=== PATIENT | male | born 1940 | race Caucasian/White ===

== ENCOUNTER 2025-06-29 01:22 | Day surgery (SDC) | payer MEDICARE, OTHER, SELFPAY ==
[2025-06-24 08:21] VITALS: BMI 34.4
--- NOTE | 2025-06-24 08:33 | PC.NURSE ---
[facility] has started construction of its new state of the art ER which will open Spring 2026. With this, we anticipate parking may be a challenge for some our surgical patients and families. Parking spaces are limited but are available for all Surgical, obstetrics, and ER patients sharing this lot. If you arrive and find you are having a hard time finding a parking space, please note that we understand the challenges, please drive around the hospital and park near Hospital Entrance 1. When you enter this entrance, you can ask a volunteer to direct or take you back to the surgical waiting area to check in. We appreciate everyone?s understanding of these expected challenges while we build for your future. Report to the Outpatient Waiting Room, entrance under the green pavilion located off [address], at time ___1130am____ on date __06/29/25 . Planned Procedure Time: 1230pm .? Time changes happen often and if your time is changed the preop area will call you the afternoon before. - You and your visitor will be asked to self-screen and do not enter if you have any COVID symptoms. Please call surgeon if you need to reschedule. - A mask is optional within the hospital at this time. Am of procedure, Patient may Have Breakfast & Liquids until 10:30am, and then Nothing except sip of water if needed till post op. - No smoking, or chewing tobacco (or any form of nicotine). No chewing gum, candy or mints. Take only the following medications with a SIP of water on the morning of surgery: __AM Medications DO NOT STOP ANY OF YOUR OTHER PRESCRIPTION MEDICATIONS PRIOR TO SURGERY EXCEPT THE FOLLOWING Hold all vitamins and supplements for 3 days per anesthesiologist. Medications to discontinue per physician NONE Date to take last dose NONE Please no make-up, nail grenadian, hairspray, perfume, deodorant, or body powder the day of surgery.? No jewelry (including any body piercings) or valuables the day of surgery, leave them at home.? Please take a shower or bath the night before, or the morning of, surgery with an antibacterial soap.? Wear comfortable, loose fitting clothing.? - Jewelry must be removed prior to entering the operating room.? Rings and piercings that are not removed may be cut off. - The hospital will not accept responsibility for valuables.? - Please leave all valuables, including medications, at home the day of surgery. If you are going home after surgery, a licensed bulk tank driver must drive you home.? - NO public transportation without another adult if you receive anesthesia. - We recommend that an adult stay with you for 24 hours following discharge. - We also recommend that you do not drive, make important decision, drink alcoholic beverages, or take any drugs that were not prescribed by your health care provider for at least 24 hours after your discharge time. Follow any additional instructions given to you from your surgeon. Telephone instructions given to __Joshua Webb POA/Nephew and asked if any additional questions and then verbalized understanding. Patient advised to call surgeon office or pre surgery nurse liaison [phone] if any additional questions.
--- NOTE | ~2025-06-29 | XR_ITS ---
EXAMINATION: XR fluoroscopy no charge DATE: 06/29/2025 12:46 INDICATION: Left L4-L5 transforaminal epidural steroid injection TECHNIQUE: 36 fluoroscopic images of the lower lumbar spine were obtained during procedure performed by Dr. Rizvi. Radiologist was not present for the imaging or procedure. The amount of fluoroscopy time used during this procedure was 0.5 minutes. Total DAP was 3.9 Gycm^2. COMPARISON: None. FINDINGS: Images demonstrate the tip of the needle positioned along the inferolateral margin of one of the pedicles, reportedly left-sided. Subsequent images demonstrate injected contrast extending inferolaterally from the region of the needle tip along the course of the exiting left L4 nerve root. IMPRESSION: 1. Fluoroscopy utilized during reported left L4-L5 transforaminal epidural steroid injection. See procedure note for further detail. Reviewed, dictated and finalized at location A. IMPRESSION: 1. Fluoroscopy utilized during reported left L4-L5 transforaminal epidural ster oid injection. See procedure note for further detail.
--- NOTE | 2025-06-29 11:48 | WPDHPUPDATE1 ---
History and Physical Update Update Date/Time: 06/29/25 11:48 History and Physical has been reviewed, including an updated exam of the patient. There are NO changes in the patient's condition. Risks, benefits, and alternatives have been discussed and questions answered. Patient agrees to proceed with procedure.
--- NOTE | 2025-06-29 11:49 | W.PM.PROC2 ---
Procedure Note - Detailed Date of Procedure 06/29/25 Pre-op Diagnosis lumbar radiculopatjhy, lumbar stenosis Post-op Diagnosis Same Procedure Performed Left Lumbar Transforaminal Epidural Steroid Injection under Fluoroscopic Guidance and with Contrast Control at L4-5. Surgeon Srinivasa Rizvi MD Anesthesia Local Description of Procedure INFORMED CONSENT: Risks, benefits and alternatives to the procedure were discussed in detail with the patient who expressed explicit understanding and consent to proceed. Patient was informed verbally and in written form regarding the risks associated with the procedure including the low risk of serious infection, bleeding/bruising, allergic reaction, nerve or organ injury, paralysis, procedural site pain or discomfort, worsening pain and/or mobility, failure to treat and/or disfigurement. The patient expressed explicit understanding and consent to proceed. All materials required for the procedure were available prior to procedure start. Site and side was marked prior to procedure and confirmed in the presence of the patient. PROCEDURE IN DETAIL: The patient was brought to the procedural suite and placed in the prone position. Patient was made comfortable with use of pillows under the head/chest, hips and ankles. Skin overlying the injection site was prepared broadly with ChloraPrep applicator and draped in a sterile manner. Aseptic technique was employed throughout. The endplates of the vertebral body at the site of interest were aligned in the AP view. Ipsilateral oblique angulation was utilized to better visualize the neuroforamen of interest. Local anesthesia was established by infiltration with approximately 5 mL of 0.5% PF lidocaine via a 1-1/2 inch 27-gauge needle. A 22-gauge 5.0 inch Jim (pencil point) spinal needle was advanced until the needle approached the 6 o'clock position on the pedicle just superior to the exiting nerve root. on the left at L4-5. Lateral view was utilized to confirm appropriate position of the needle tip within the superior and posterior portion of the respective foramen. In an AP view, 1 mL of Omnipaque 300 contrast medium was injected after negative aspiration for CSF, blood or other bodily fluid, showing appropriate neurogram without evidence of intravascular or intrathecal spread of contrast. Digital subtraction imaging was used with an additional 1ml of the same contrast medium to confirm absence of intravascular contrast spread. A 1mL solution containing 10 mg of dexamethasone was injected after negative repeat aspiration. Appropriate spread of the injectate was confirmed with washout of previously injected contrast. No parasthesias were elicited. Needle was removed completely intact without difficulty. Images were saved and documented in the patient chart. Patient's skin was cleaned and sterile bandage applied. The patient tolerated the procedure well. The patient was transported to the recovery area in stable condition where they were observed for an appropriate amount of time prior to discharge, without evidence of complication. The patient was instructed to avoid excessive activity for the next 48 hours, including climbing and frequent use of stairs. Showers only for 48 hours. They were instructed not to drive or operate heavy machinery for 24 hours. They are to monitor for severe headaches, fevers, chills, night sweats, erythema/swelling at the site or any other signs of infection, bleeding/bruising, bowel or bladder changes as well as new pain, weakness or numbness in the upper or lower extremity. Should they notice these changes, they are instructed to call our office immediately or report directly to the nearest Emergency Department if no answer or if after posted office hours. COMPLICATIONS: None COMMENTS: None CONTRAST WASTED: 26 mL Omnipaque 300. STEROID WASTED: 0 mg of dexamethasone. Complications No immediate complications Condition Stable Disposition Same day [facility] Billing Surgery - Charge Forward: Surgery Billing
[2025-06-29 12:16] VITALS: BP 161/53; PULSE 66; RESP 20; TEMP 36.3; O2SAT 98
[2025-06-29 12:29] VITALS: BP 199/85; PULSE 103; RESP 22; O2SAT 96
[2025-06-29] MEDS: DEXAMETHASONE SODIUM PHOSP/PF 10 MG/ML 1 ML VIAL INFILTRATE (12:33)
[2025-06-29 12:37] VITALS: BP 176/73; PULSE 112; RESP 20; O2SAT 99
[2025-06-29 12:41] VITALS: BP 161/62; PULSE 87; RESP 16; O2SAT 98
== END 2025-06-29 13:15 | disposition home or self-care (01) ==
PROVIDERS: PCP Nurse Practitioner; Visit Provider Anesthesiology Pain Medicine
PROC: (CPT 64483; principal; 2025-06-29 12:30)
DX: M48.061 Spinal stenosis, lumbar region without neurogenic claudication (principal); F12.90 Cannabis use, unspecified, uncomplicated; Z79.891 Long term (current) use of opiate analgesic; Z98.890 Other specified postprocedural states; Z87.891 Personal history of nicotine dependence; Z80.8 Family history of malignant neoplasm of other organs or systems
CPT/HCPCS: 64483; 99199; Q9965

== ENCOUNTER 2025-08-04 00:58 | Day surgery (SDC) | payer MEDICARE, SELFPAY ==
[2025-07-30 09:24] VITALS: BMI 33.5
--- NOTE | 2025-07-30 09:30 | PC.NURSE ---
[facility] has started construction of its new state of the art ER which will open Spring 2026. With this, we anticipate parking may be a challenge for some our surgical patients and families. Parking spaces are limited but are available for all Surgical, obstetrics, and ER patients sharing this lot. If you arrive and find you are having a hard time finding a parking space, please note that we understand the challenges, please drive around the hospital and park near Hospital Entrance 1. When you enter this entrance, you can ask a volunteer to direct or take you back to the surgical waiting area to check in. We appreciate everyone?s understanding of these expected challenges while we build for your future. Report to the Outpatient Waiting Room, entrance under the green pavilion located off [address], at time __07:30am on date __08/04/25 . Planned Procedure Time: _08:30am .? Time changes happen often and if your time is changed the preop area will call you the afternoon before. - You and your visitor will be asked to self-screen and do not enter if you have any COVID symptoms. Please call surgeon if you need to reschedule. - A mask is optional within the hospital at this time. - No food or drink from midnight until time of surgery and no smoking, or chewing tobacco (or any form of nicotine). No chewing gum, candy or mints. Take only the following medications with a SIP of water on the morning of surgery: ___AM Medications DO NOT STOP ANY OF YOUR OTHER PRESCRIPTION MEDICATIONS PRIOR TO SURGERY EXCEPT THE FOLLOWING Hold all vitamins and supplements for 3 days per anesthesiologist. Medications to discontinue per physician NONE Date to take last dose NONE Please no make-up, nail spanish, hairspray, perfume, deodorant, or body powder the day of surgery.? No jewelry (including any body piercings) or valuables the day of surgery, leave them at home.? Please take a shower or bath the night before, or the morning of, surgery with an antibacterial soap.? Wear comfortable, loose fitting clothing.? Children are encouraged to wear pajamas. - Jewelry must be removed prior to entering the operating room.? Rings and piercings that are not removed may be cut off. - The hospital will not accept responsibility for valuables.? - Please leave all valuables, including medications, at home the day of surgery. If you are going home after surgery, a licensed dray driver must drive you home.? - NO public transportation without another adult if you receive anesthesia. - We recommend that an adult stay with you for 24 hours following discharge. - We also recommend that you do not drive, make important decision, drink alcoholic beverages, or take any drugs that were not prescribed by your health care provider for at least 24 hours after your discharge time.- Per Dr CHAN NO DRIVING FOR 24HRS Follow any additional instructions given to you from your surgeon. Telephone instructions given to ___Nephew/MEGAN Joshua and asked if any additional questions and then verbalized understanding. Patient advised to call surgeon office or pre surgery nurse liaison [phone] if any additional questions.
--- NOTE | ~2025-08-04 | XR_ITS ---
EXAMINATION: XR fluoroscopy no charge INDICATION: BLOCKS OF BILATERAL GENICULAR NERVES X6 . COMPARISON: None TECHNIQUE: 2 fluoroscopic images of the knees were obtained during blocks of bilateral genicular nerves. Fluoroscopy exposure time was 30 seconds. Air Kerma 30.133 mGy. DAP 3.6937 mGym2. FINDINGS/IMPRESSION: No radiologist was present or involved at the time of the procedure. Static images were submitted for interpretation. 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 Multiple images demonstrate placement of needles and injection of contrast on both sides. Fluoroscopic documentation of procedure as described of both knees. Please refer to the operative note for complete procedural details. Reviewed, dictated and finalized at location A. [facility]
--- OUTSIDE RECORDS SUMMARY | 2025-08-04 01:00 | XMS_ITS | Clinical Summary ---
Author Organization [facility] Address [address] [place] [address] Care Team Providers Care Trade Clerk Name Role Phone Elisabeth Christiansen [facility] Primary Care Provider Allergies Active Allergy Reactions Criticality Noted Date Comments Oxybutynin Dizziness,Blurred vision 07/07/2025 Medications atorvastatin (LIPITOR) 40 MG tabletIndicati ons:Hyperlipid emia Take 1 tablet (40 mg total) by mouth nightly at bedtime. 180 tablet 1 025 Active acetaminophen (TYLENOL) 500 MG tabletIndicati ons:Back Pain Take 2 tablets (1,000 mg total) by mouth 3 (three) times daily. Indications: Backache 025 Active docusate sodium (COLACE) 100 MG capsuleIndicat ions:Constipat ion Take 100 mg by mouth daily as needed. Indications: Constipation 025 Active omeprazole (PRILOSEC) 20 MG capsuleIndicat ions:Gastroeso phageal Reflux Disease TAKE 1 CAPSULE (20 MG TOTAL) BY MOUTH DAILY. INDICATIONS: GASTROESOPHAGEAL REFLUX DISEASE 90 capsule 3 025 Active donepezil (ARICEPT) 5 MG TabIndications :Vascular dementia without behavioral disturbance, psychotic disturbance, mood disturbance, or anxiety, unspecified dementia severity (CMS/HCC) TAKE 1 TABLET EVERY NIGHT AT BEDTIME 90 tablet Active tamsulosin (FLOMAX) 0.4 MG CapIndications :Benign prostatic hyperplasia with urinary frequency TAKE 2 CAPSULES EVERY DAY 180 capsule Active donepezil (ARICEPT) 5 MG TabIndications :Memory Impairment Take 1 tablet (5 mg total) by mouth nightly at bedtime. at bedtime. 90 tablet 1 025 2024 Discontinued tamsulosin (FLOMAX) 0.4 MG CapIndications :Benign prostatic hyperplasia (BPH) suspected Take 2 capsules (0.8 mg total) by mouth daily. 180 capsule 1 025 2024 Discontinued oxybutynin (DITROPAN) 5 MG tabletIndicati ons:Urinary frequency Take one at 5 pm 30 tablet 2 025 2024 Discontinued(S misha effects) Active Problems Problem Noted Date Diagnosed Date Adjustment disorder with mixed emotional feature s 06/26/2025 Depressive disorder 06/26/2025 Ex-smoker 06/26/2025 Overview (06/26/2025): Oct 23, 2023 Entered By: FRANCISCO JAVIER WOOD Comment: quit 1999, 1 ppd for 40+ yrs. Hearing loss 06/26/2025 Insomnia 06/26/2025 Lumbar spondylosis 06/26/2025 Overview (06/26/2025): Oct 24, 2023 Entered By: FRANCISCO JAVIER WOOD Comment: 07/19/23 L-spine MRI ordered by Dr. Valdez - moderate to severe spinal stenosis (L1-2, L2-3) and disc herniations (l3-4, l5-s1) February 24, 2025 Entered By: FRANCISCO JAVIER WOOD Comment: 02/18/25 L-spine MRI at [facility] - degenerative changes. L1/2 mild spinal & foreminal(F) stenosis(S) .L2/3 mod spinal & mild FS. L3/4 mild FS. L4/5 mod FS. L5/S1 severe FS. 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, initial encounter 08/14/2024 Spinal stenosis of lumbar re gion with neurogenic claudication 08/14/2024 Acute CVA (cerebrovascular accident) 03/18/2024 Stroke (cerebrum) 03/17/2024 Acute ischemic stroke 03/16/2024 Benign prostatic hyperplasia without lower urinary tract symptoms 10/11/2023 Spinal stenosis in cervical region 09/12/2012 Chronic pain of both knees 10/01/2004 Chronic back pain 10/01/1962 Overview (10/11/2023): injury in 1962 picking up a heavy object Resolved Problems Problem Noted Date Diagnosed Date Resolved Date Primary hypertension 10/25/2023 025 Rhabdomyolysis 09/26/2023 10/11/2023 Encounters Date Type Department Care Team Description 07/06/[address] [place] [address] Elisabeth Christiansen, SYNTHETIC DEPARTMENT SUPERVISOR Concerns 06/29/2025 Scan [facility] Scanned, [facility] Procedure (SCAN) 06/29/2025 Results Follow-Up [address] [place] [address] Emy Grande MA XR FOOT LT 3V 06/26/2025 4:00 PM CDT - 06/26/2025 11:59 PM CDT Hospital Encounter [facility] [address] [place] [address] [place] [address] Elisabeth Christiansen, SYNTHETIC DEPARTMENT SUPERVISOR Discharge Disposition: Home or Self Care (Routine Discharge) 06/26/2025 3:00 PM CDT Office Visit [address] [place] [address] Elisabeth Christiansen FNP Follow Up (Patient is here today for a follow up. They want to discuss medications he is taking. The flomax is not helping him at all. The melatonin is not helping either and he cannot sleep./-nkw) 06/26/2025 Travel 06/18/[address] [place] [address] Elisabeth Christiansen FNP Follow Up Call 06/04/2025 Scan [employer] SR[facility] Scanned, [facility] 05/30/2025 Travel 05/21/2025 8:00 AM CDT Home Care Visit [facility] [place] [address] [place] [address] Alise Benedict RN SN OASIS DISCHARGE/ASSESSMEN T 05/14/2025 10:00 AM CDT Home Care Visit [place] [address] [place] [address] Geovanna Hogan, PHARMACEUTICAL ASSISTANT SN HOME VISIT 05/14/2025 9:30 AM CDT Home Care Visit [place] [address] [place] [address] Nikki Lee, PT PT DISCIPLINE DISCHARGE 05/12/2025 1:30 PM CDT Home Care Visit [place] [address] [place] [address] Joyce Graff, DRESS FITTER DRESS FITTER HOME VISIT 05/12/2025 Orders Only [address] [place] [address] Elisabeth Christiansen FNP 05/12/[address] [place] [address] Elisabeth Christiansen FNP Medication 05/08/2025 11:00 AM CDT Home Care Visit [facility] Home [facility] [place] [address] Alise Benedict RN SN HOME VISIT 05/06/2025 10:30 AM CDT Home Care Visit [address] [address] Joyce Graff, DRESS FITTER DRESS FITTER HOME VISIT 05/05/2025 2:30 PM CDT Home Care Visit [facility] [address] [address] Joyce Graff, DRESS FITTER DRESS FITTER HOME VISIT from Last 3 Months Immunizations Immunization Administration Dates Next Due Fluzone High Dose (IIV, triv alent, 0.5mL) 06/19/2025,06/22/2024,06/10/2019,2017,06/14/2017,07/05/2015 Fluzone High Dose - >Age 65 (Prefilled Syringe) 10/23/2023,06/28/2023,07/25/2022 Influenza (Generic) 07/25/2022, 6,07/01/2015,2013,07/23/2007,08/01/2006,08/01/2005,1 ,06/19/2003 Influenza Adult (Generic) 06/10/2019,,06/14/2017,2014 MODERNA COVID-19 (12+) MRNA, LNP-S, PF, 100 MCG/ 0.5 ML DOSE 09/07/2021,12/15/2020,11/19/2020 PFIZER COVID-19 (12+) MRNA, LNP-S, PF, RAMONA-SUCROSE, 30 MCG/0.3 ML (COMIRNATY) 06/22/2024,10/24/2023 Pneumococcal (Generic) 01/14/2003 Pneumococcal (Prevnar 13) 06/30/2018,05/17/2016 Pneumococcal (Prevnar 20) 10/24/2023 Td, Adsorbed, Preservative F ree, Adult Use, Lf Unspecified 06/19/2003 Tdap (Generic) 10/24/2023,11/12/2015 Family History Medical History Relation Comments Cancer Mother Brain cancer Sister Relation Status Comments Daughter Father Mother Sister Social History Tobacco Use Types Packs/Day Years Used Date Smoking Tobacco: Former Cigarettes Q uit: 1989 Smokeless Tobacco: Never Tobacco Cessation:Counseling Given: No Alcohol Use Standard Drinks/Week Comments Yes 0 (1 standard drink = 0.6 oz pur e alcohol) 6 beers per week OASIS D0700: Social Isolation Answer Da te Recorded Frequency of experiencing loneliness or isolatio n Never 05/21/2025 OASIS A1250: Transportation Answer Date Recorded Lack of Transportation (Medical) No 05/21/2025 Lack of Transportation (Non-Medical) No 05/21/2025 Patient Unable or Declines to Respond No 05/21/2025 OASIS B1300: Health Literacy Answer Alexy e Recorded Frequency of needing help to read materials from doctor or pharmacy Never 05/21/2025 B1300 Health Literacy Answer Date Recor ded How often do you need to hav e someone help you when you read instructions, pamphlets, or other written material from your doctor or pharmacy? Rarely 03/06/2025 [employer] Answer Date Recorded In the past 12 months has [facility] [employer], gas, oil, or water [employer] threatened to shut off services in your home? No 03/06/2025 Humiliation, Afraid, Rape, and Kick questionnair e Answer Date Recorded Within the last year, have y ou been afraid of your partner or ex-partner? No 03/06/2025 Within the last year, have y ou been humiliated or emotionally abused in other ways by your partner or ex-partner? No Within the last year, have y ou been kicked, hit, slapped, or otherwise physically hurt by your partner or ex-partner? No 03/06/2025 Within the last year, have y ou been raped or forced to have any kind of sexual activity by your partner or ex-partner? No 03/06/2025 Social Connection and Isolation Panel Answer Date Recorded In a typical week, how many times do you talk on the phone with family, friends, or neighbors? Patient declined 03/06/2025 How often do you get togethe r with friends or relatives? Patient declined 03/06/2025 Attends [employer] Services Not on file 03/06 Do you belong to any clubs o r organizations such as anabaptist groups, unions, fraternal or athletic groups, or school groups? Yes 03/06/2025 How often do you attend meet ings of the clubs or organizations you belong to? More than 4 times per year 03/06/2025 Are you , , di vorced, , never , or living with a partner? Patient declined 03/06/2025 AUDIT-C Answer Date Recorded Q1: How often do you have a drink containing alc ohol? 2-4 times a month 03/06/2025 Q2: How many drinks containi ng alcohol do you have on a typical day when you are drinking? 1 or 2 03/06/2025 Q3: How often do you have si x or more drinks on one occasion? Never 03/06/2025 Overall Financial Resource Strain (CARDIA) Answe r Date Recorded How hard is it for you to pa y for the very basics like food, housing, medical care, and heating? Patient declined 03/06/2025 PHQ-2 Answer Date Recorded Patient Health Questionnaire-2 Score 0 02/26/2025 [facility] - Occupational Stress Questionnaire Answer Date Recorded Do you feel stress - tense, restless, nervous, or anxious, or unable to sleep at night because your mind is troubled all the time - these days? To some extent 03/06/2025 Exercise Vital Sign Answer Date Recorde d On average, how many days pe r week do you engage in moderate to strenuous exercise (like a brisk walk)? Patient declined On average, how many minutes do you engage in exercise at this level? Patient declined 03/06/2025 Hunger Vital Sign Answer Date Recorded Within the past 12 months, y ou worried that your food would run out before you got the money to buy more. Patient declined Within the past 12 months, t he food you bought just didn't last and you didn't have money to get more. Patient declined 03/2025 PRAPARE - Transportation Answer Date Re corded In the past 12 months, has l ack of transportation kept you from medical appointments or from getting medications? No 03/2025 In the past 12 months, has l ack of transportation kept you from meetings, work, or from getting things needed for daily living? No 03/06/2025 Housing Stability Vital Sign Answer Alexy e Recorded In the last 12 months, was t here a time when you were not able to pay the mortgage or rent on time? No 09/26/2023 In the last 12 months, how many places have you lived? 1 09/26/2023 In the last 12 months, was t here a time when you did not have a steady place to sleep or slept in a mcc (including now)? No 09/26/2023 Housing Stability Vital Sign Answer Alexy e Recorded In the last 12 months, was t here a time when you were not able to pay the mortgage or rent on time? Patient declined 03/06/20 25 Number of Times Moved in the Last Year Not on fi le 03/06/2025 At any time in the past 12 m [facility], were you homeless or living in a mcc (including now)? No 03/06/2025 Sex and Gender Information Value Date Recorded Sex Assigned at Male 10/14/2024 1:22 PM SNOWBLOWER MECHANIC Legal Sex Male 11:34 PM CDT Gender Identity Male 02/26/2025 8:55 AM CDT Sexual Orientation Not on file Last Filed Vital Signs Vital Sign Reading Time Taken Comments Blood Pressure 132/60 06/26/2025 3:02 PM CDT Pulse 86 06/26/2025 3:02 PM CDT Temperature 36.8 C (98.3 F) 06/26/2025 3:02 PM CDT Respiratory Rate 16 06/26/2025 3:02 PM CDT Oxygen Saturation 98% 06/26/2025 3:02 PM CDT Inhaled Oxygen Concentration - - Weight 101.6 kg (224 lb) 06/26/2025 3:02 PM CDT Height 172.7 cm (5' 8) 06/26/2025 3:02 PM CDT Body Mass Index 34.06 06/26/2025 3:02 PM CDT Plan of Treatment Upcoming Encounters Date Type Department Care Team (Late st Contact Info) Description 09/18/2025 3:00 PM SNOWBLOWER MECHANIC Office Visit [address] [place] [address] Elisabeth Christiansen, [facility] [address] [facility] [place], [place] [id number] Health Maintenance Due Date Last Done Comments Zoster Vaccines (1 of 2) 1988 RSV Immunization or 60+ Years (1 - 1-dose 75+ series) 2013 COVID-19 Vaccine ( - season) 2025 06/22/2024, 10/24/2023, 09/07/2021, Additional history exists Annual Medicare Wellness Visit 02/25/2026 Postponed from 2003 (Patient Refused) DTaP, Tdap and Td Vaccines (3 - Td or Tdap) 10/24/2033 10/24/2023, 11/12/2015, 06/19/2003 Pneumococcal Vaccine: 50+ Years Completed 10/24/2023, 06/30/2018, 05/17/2016 PHQ-2 (Physician [place]) Completed 02/26/2025 Influenza Adult Completed 06/19/2025, 06/02, 10/23/2023, Additional history exists Hepatitis A Vaccines Aged Out No long er eligible based on patient's age to complete this topic Meningococcal B Vaccine Aged Out No l onger eligible based on patient's age to complete this topic Meningococcal Vaccine Aged Out No jaelyn jg eligible based on patient's age to complete this topic RSV Immunizations Under 20 Months Aged Out No longer eligible based on patient's age to complete this topic Medical Devices Implanted Type Area Graphic Editor Device Identifier Shelf Expiration Date Model / Serial / Lot Iol [employer]ec[employer] Simplicity Dcb00 - [id number] Implanted:Qty: 1 on 01/30/2024 by Rebeca Startton MD at [facility] [employer] 05/12/2026 DCB00 / / [id number] Procedures Procedure Name Priority Date/Time Associated Diagnosis Comments PROCEDURE GENERIC (SCAN ORDER) 06/29/2025 PROCEDURE GENERIC (SCAN ORDER) 06/29/2025 XR FOOT LT 3V Routine 06/26/2025 4:29 PM CDT Injury of left foot, initial encounter from Last 3 Months Results * PROCEDURE GENERIC (SCAN ORDER) (06/29/2025) 06/29/2025 [facility] Scanned SCANNING Final Resu lt * PROCEDURE GENERIC (SCAN ORDER) (06/29/2025) 06/29/2025 [facility] Scanned SCANNING Final Resu lt * XR FOOT LT 3V (06/26/2025 4:29 PM CDT) Anatomical Region Laterality Modality Foot Computed Tomogra phy 06/29/2025 7:09 AM CDT Impressions 06/29/2025 7:09 AM CDT IMPRESSION: No acute findings Ordered By: ELISABETH CHRISTIANSEN Interpreted By: Elier Matos MD, 06/29/2025 7:09 AM Narrative 06/29/2025 7:09 AM CDT [address] [place] [address] 3 VIEWS OF THE LEFT FOOT CLINICAL HISTORY: Pain COMPARISON: February 11, 2020 3 views of the left foot demonstrate the bony elements to be intact. There is no evidence of fracture or dislocation. The surrounding soft tissues appear normal. Degenerative changes are again noted throughout the foot but seen predominantly within the first metatarsal phalangeal joint. These are slightly increased from previous Procedure Note Elier Matos MD - 06/29/[address] [place] [address] 3 VIEWS OF THE LEFT FOOT CLINICAL HISTORY: Pain COMPARISON: February 11, 2020 3 views of the left foot demonstrate the bony elements to be intact.There is no evidence of fracture or dislocation. The surrounding softtissues appear normal. Degenerative changes are again noted throughout thefoot but seen predominantly within the first metatarsal phalangeal joint.These are slightly increased from previous IMPRESSION: No acute findings Ordered By: ELISABETH CHRISTIANSEN Interpreted By: Elier Matos MD, 06/29/2025 7:09 AM Elisabeth Christiansen SYNTHETIC DEPARTMENT SUPERVISOR GENERAL IMAGING Final Result from Last 3 Months Insurance [employer] [facility] Advance Directives Documents on File Type Date Recorded Patient Certified Ophthalmic Assistant Expl anation DNR (Do Not Resuscitate) Documentation 03/31/2024 2:35 PM DNR (Do Not Resuscitate) Documentation 04/02/2025 10:14 AM Power of Manager Strategic Partnerships 04/16/2025 4:20 PM prope rty Advance Directives and Living Will 03/11/2025 7:52 AM Healthcare POA & LIVING WILL * Full Code (Latest Code Status on File) Date Activated Date Inactivated Comments 04/27/2025 3:13 PM * Full Code Date Activated Date Inactivated Comments 03/26/2025 12:46 PM 04/18/2025 9:10 PM * POLST Date Activated Date Inactivated Comments 03/11/2025 12:40 AM 03/19/2025 12:23 PM Question Answer Comments Cardiopulmonary Resuscitatio n (CPR) If patient has no pulse and is not breathing: DO NOT Attempt Resuscitation CPR Code Limitations: No Chest Compression No Defibrillation/CardioversionN o Internal/External PacemakerNo Mechanical Ventilation with IntubationNo Drug Protocol After Arrest OccursNo Bag/Mask Medical Interventions when N OT in Cardiopulmonary Arrest (If patient is found with a pulse and/or is breathing): Selective Treatment - Do NOT Intubate Selective Treatment Options: OxygenSucti onCPAP/BIPAPIV FluidsIV Medications Artificially administered nutrition - Offer food by mouth, if feasible and desired: Trial - Defined Trial Period NO SURGICALLY PLACED TUBES Documentation of discussion: Patient * DNR Date Activated Date Inactivated Comments 03/07/2025 4:13 PM 03/11/2025 12:40 AM * DNR Date Activated Date Inactivated Comments 03/06/2025 11:55 AM 03/07/2025 4:12 PM Healthcare Agents on File Name Relationship Healthcare Agent Yuania p Communication Joshua (POA-H/F) [facility] Care Agent Care Teams Trade Clerk Relationship Specialty Start Date End Date Elisabeth Christiansen FNP [facility] [address] PCP - General Nurse Practitioner Family 10/19/23
--- OUTSIDE RECORDS SUMMARY | 2025-08-04 01:00 | XMS_ITS | Encounter Summary ---
Author Organization [facility] Address [address] [place] [address] Care Team Providers Care Adhesive Bonding Machine Operator Name Role Phone Erich Valdez MD Primary Care Provider Elisabeth Christiansen Primary Care Provider Lisa Hernández RN Unavailable [phone] Encounter Details Date Type Department Care Team (Late st Contact Info) Description 05/20/[address] [facility] [address] [place], [place] [id number] , Generic Conversion, Social History Tobacco Use Types Packs/Day Years Used Date Smoking Tobacco: Never Assessed Sex and Gender Information Value Date Recorded Sex Assigned at Male 10/14/2024 1:22 PM STAY CUTTER Legal Sex Male 11:34 PM CDT Gender Identity Male 02/26/2025 8:55 AM CDT Sexual Orientation Not on file documented as of this encounter Plan of Treatment Upcoming Encounters Date Type Department Care Team (Late st Contact Info) Description 09/18/2025 3:00 PM STAY CUTTER Office Visit [address] [place] [address] Elisabeth Christiansen FNP [address] [place] [address] documented as of this encounter Visit Diagnoses Not on filedocumented in this encounter Additional Health Concerns Infection Onset Date Last Indicated Resolved Time Respiratory Rule Out 03/06/2025 03/06/2025 025 9:43 AM CDT COVID-19 Rule Out 03/06/2025 03/06/2025 03/06/2025 9:44 AM CDT Respiratory Rule Out 03/06/2025 03/06/2025 025 3:55 PM CDT documented as of this encounter Care Teams Adhesive Bonding Machine Operator Relationship Specialty Start Date End Date Erich Valdez MD [address] [place] [address] PCP - General FAMILY PRACTICE 06/28/23 10/18/23 Elisabeth Christiansen FNP [address] [place] [address] PCP - General Nurse Practitioner Family 10/19/23 Lisa Hernández, RN [address] [place] [address] Warehouse Representative (Ambulatory) REGISTERED NURSE 03/09/25 03/30/25 documented as of this encounter
--- OUTSIDE RECORDS SUMMARY | 2025-08-04 01:00 | XMS_ITS | Encounter Summary ---
Author Organization [facility] Address [facility] [place] [address] Care Team Providers Care Belt Back Operator Name Role Phone Elisabeth Christiansen JAYDEN Primary Care Provider [phone] Encounter Details Date Type Department Care Team (Late st Contact Info) Description 06/29/2025 Results Follow-Up [facility] [address] [place], [place] [id number] Emy Grande MA XR FOOT LT 3V Social History Tobacco Use Types Packs/Day Years Used Date Smoking Tobacco: Former Cigarettes Q uit: 1989 Smokeless Tobacco: Never Alcohol Use Standard Drinks/Week Comments Yes 0 [...] from your doctor or pharmacy? Rarely 03/06/2025 [facility] Utilities Answer Date Recorded In the past 12 months has th e electric, gas, oil, or water company threatened to shut off services in your [...] friends or relatives? Patient declined 03/06/2025 Attends Congregation Services Not on file 03/06 Do you belong to any clubs o r organizations such as evangelical groups, unions, fraternal or athletic groups, or [...] Recorded Patient Health Questionnaire-2 Score 0 02/26/2025 [facility] - Occupational Stress Questionnaire Answer Date Recorded [...] place to sleep or slept in a penitentiary (including now)? No 09/26/2023 Housing Stability Vital Sign Answer Alexy e Recorded In the last 12 months, was t here a time when you were not able to pay the mortgage or rent on time? Patient declined 03/06/20 25 Number of Times Moved in the Last Year Not on fi le 03/06/2025 At any time in the past [address] [facility], were you homeless or living in a penitentiary (including now)? No 03/06/2025 Sex and Gender Information Value Date Recorded Sex Assigned at Male 10/14/2024 1:22 PM WAREHOUSE SHIPPING RECEIVING CLERK Legal Sex Male 11:34 PM CDT Gender Identity Male 02/26/2025 8:55 AM CDT Sexual Orientation Not on file documented as of this encounter Functional Status * Are you deaf or do you have serious difficulty hearing Answer Date of Assessment Author Status Yes 03/10/2025 9:22 AM CDT Leticia Berry RN Active * Are you blind or do you have serious difficulty seeing, even when wearing glasses? Answer Date of Assessment Author Status No 03/10/2025 9:22 AM MARKT Leticia Berry RN Active * Do you have serious difficulty walking or climbing stairs? Answer Date of Assessment Author Status Yes 03/10/2025 9:22 AM MARKT Leticia Berry RN Active * Do you have difficulty dressing or bathing? Answer Date of Assessment Author Status Yes 03/10/2025 9:22 AM CDT Leticia Berry RN Active * Because of a physical, mental, or emotional condition, do you have difficulty doing errands alone such as visiting a doctor's office or shopping? Answer Date of Assessment Author Status No 03/10/2025 9:22 AM MARKT Leticia Berry RN Active documented as of this encounter Mental Status * Because of a physical, mental, or emotional condition, do you have serious difficulty concentrating, remembering, or making decisions? Answer Entry Date Author Status No 03/10/2025 9:22 AM MARKT Leticia Berry RN Active documented in this encounter Progress Notes * Emy Grande MA - 06/29/2025 10:20 AM CDT Pt notified. Verbalized understanding. documented in this encounter Plan of Treatment Upcoming Encounters Date Type Department Care Team (Late st Contact Info) Description 09/18/2025 3:00 PM WAREHOUSE SHIPPING RECEIVING CLERK Office Visit [address] [place] [address] Elisabeth Christiansen FNP [address] [place] [id number] documented as of this encounter Visit Diagnoses Not on filedocumented in this encounter Additional Health Concerns Assessment Noted Time PHQ-9 Depression Total Score: 6 10/11/19 24 2:00 PM WAREHOUSE SHIPPING RECEIVING CLERK documented as of this encounter Care Teams Belt Back Operator Relationship Specialty Start Date End Date Elisabeth Christiansen FNP [address] [place] [address] PCP - General Nurse Practitioner Family 10/19/23 documented as of this encounter
--- NOTE | 2025-08-04 08:33 | WPDHPUPDATE1 ---
History and Physical Update Update Date/Time: 08/04/25 08:33 History and Physical has been reviewed, including an updated exam of the patient. There are NO changes in the patient's condition. Risks, benefits, and alternatives have been discussed and questions answered. Patient agrees to proceed with procedure.
--- NOTE | 2025-08-04 08:34 | P.OP_ITS ---
Procedure Note - Detailed Date of Procedure 08/04/25 Pre-op Diagnosis bilat knee pain Post-op Diagnosis Same Procedure Performed Diagnostic Blockade of the Bilateral Superior Medial, Inferior Medial and Superior Lateral Genicular Nerves, Vastus Intermedius nerve under Fluoroscopic Guidance (8 nerves blocked). Surgeon Srinivasa Rizvi MD Anesthesia Local Description of Procedure INFORMED CONSENT: Risks, benefits and alternatives to the procedure were discussed in detail with the patient who expressed explicit understanding and consent to proceed. Patient was informed verbally and in written form regarding the risks associated with the procedure including the low risk of serious infection, bleeding/bruising, allergic reaction, nerve injury, paralysis, procedural site pain or discomfort, worsening pain and/or mobility, failure to treat and disfigurement. The patient expressed explicit understanding and consent to proceed. All materials required for the procedure were available prior to procedure start. Site and side was marked prior to procedure and confirmed in the presence of the patient. PROCEDURE IN DETAIL: The patient was brought to the procedural suite and placed in the supine position. Patient was made comfortable with use of pillows under the head/shoulder, knees and ankles. Skin overlying anterior, medial and lateral surface of the knee joint on the right side was prepared broadly with ChloraPrep applicator and draped in a sterile manner. Aseptic technique was used throughout. The intersection between the femoral shaft and the medial femoral condyle, lateral femoral condyle and between the medial tibial plateau and tibial shaft were visualized in the AP view, as well as the line bisecting the femur and perpendicular to the short axis of the joint space 6cm proximal to the superior border of the patella with the knee partially flexed at 120 degrees. Local anesthesia was established by infiltration with approximately 3 mL of 2% lidocaine via a 1-1/2 inch 27-gauge needle at the skin and soft tissues overlying each site. A 25-gauge 3.5 inch quincke spinal needle was advanced until the needle tip contacted periosteum at each location, and was then walked off medially to approximate the position of the Superior and Inferior Medial Genicular nerves or laterally to approximate the position of the Superior Lateral Genicular nerve, and just superficial to femoral periosteum 6cm proximal to the patella to block the Vastus intermedius nerve. Needle depth was verified in the lateral view revealing appropriate needle positioning at each location. 0.5ml of Omnipaque 300 contrast medium was injected at each site confirming appropriate perineural spread of contrast without evidence of intravascular or intra-articular spread. After repeat negative aspiration, 0.5-1.0ml of 0.5% PF Bupivacaine was injected at each site to block the respective nerves. Needle was removed completely intact without difficulty. The same exact procedure was then repeated on the contralteral side to block the left knee, modified only to accommodate for contralateral procedure location, with similar results and no evidence of complication. Images were saved and documented in the patient chart. Patient's skin was cleansed and sterile bandage applied. The patient tolerated the procedure well. The patient was transported to the recovery area in stable condition where they were observed for an appropriate amount of time prior to discharge, without ev idence of complication. Patient was instructed on the appropriate completion of a pain diary over the next 12-24 hours. The patient was instructed to avoid excessive activity for the next 48 hours, including climbing and frequent use of stairs. Showers only for 48 hours. They were instructed not to drive or operate heavy machinery for 24 hours. They are to monitor for severe headaches, fevers, chills, night sweats, erythema/swelling at the site or any other signs of infection, bleeding/bruising, bowel or bladder changes as well as new pain, weakness or numbness in the upper or lower extremity. Should they notice these changes, they are instructed to call our office immediately or report directly to the nearest Emergency Department if no answer or if after posted office hours. CONTRAST WASTED: 28 mL Omnipaque 300. Complications No immediate complications Condition Stable Disposition Same day [facility] Billing Surgery - Charge Forward: Surgery Billing
[2025-08-04 08:38] VITALS: BP 149/94; PULSE 92; TEMP 36.3; O2SAT 95; BMI 34.4
[2025-08-04 09:21] VITALS: BP 203/84; PULSE 78; RESP 16; O2SAT 97
[2025-08-04] MEDS: BUPivacaine HCL 0.5% 10 ML AMP INFILTRATE (09:24)
[2025-08-04] MEDS: LIDOCAINE 1% PF INJ 5 ML VIAL 10 ML INFILTRATE (09:25)
[2025-08-04 09:30] VITALS: BP 181/77; PULSE 80; RESP 20; O2SAT 97
[2025-08-04 09:39] VITALS: BP 190/80; PULSE 82; RESP 20; O2SAT 97
[2025-08-04 09:45] VITALS: BP 179/78; PULSE 76; RESP 14; O2SAT 99
== END 2025-08-04 10:07 | disposition home or self-care (01) ==
PROVIDERS: PCP Nurse Practitioner; Visit Provider Anesthesiology Pain Medicine
PROC: (CPT 64454; principal; 2025-08-04 09:00)
DX: M25.561 Pain in right knee (principal); M25.562 Pain in left knee; F12.90 Cannabis use, unspecified, uncomplicated; Z98.890 Other specified postprocedural states; Z87.891 Personal history of nicotine dependence; Z80.8 Family history of malignant neoplasm of other organs or systems
CPT/HCPCS: 64454; 99199; J2003; Q9965